=== PATIENT | male | born 1985 | race Caucasian/White ===

== ENCOUNTER 2024-02-03 13:53 | Inpatient (IN) | payer OTHER ==
--- NOTE | 2024-02-03 15:12 | ED ---
Upper Extremity HPI - General Chief Complaint: Extremity Injury, Upper Stated Complaint: L hand finger issue Time Seen by Provider: 02/03/24 15:11 Source: patient, RN notes reviewed Mode of arrival: ambulatory Limitations: no limitations - History of Present Illness Initial Comments: 38-year-old male presented to ER with a chief complaint of left second digit pain. Patient reports it has been painful and red for the past 2 months. Patient recently underwent surgical intervention and drainage of infection at [facility]. He does state he was started on oral antibiotics at discharge. He does not remember which antibiotics. He states for the past month finger has continued to be swollen, red and painful. He denies any new traumas or injuries. Patient recently checking into [facility] for heroin rehab. Last use last night. He also reports an abscess on his right forearm. He denies any fevers, chills, night sweats, chest pain, shortness of breath, abdominal pain, urinary complaints or peripheral edema. - Related Data Home Medications Medication Instructions Recorded Confirmed No Known Home Medications 02/03/24 02/03/24 Allergies Allergy/AdvReac Type Severity Reaction Status Date / Time No Known Allergies Allergy Verified 02/03/24 17:04 Review of Systems ROS Statement: Those systems with pertinent positive or pertinent negative responses have been documented in the HPI. ROS Other: All systems not noted in ROS Statement are negative. Past Medical History Past Medical History: No Reported History History of Any Multi-Drug Resistant Organisms: None Reported Past Surgical History: No Surgical Hx Reported Past Psychological History: ADD/ADHD, Anxiety Smoking Status: Current every day smoker Past Alcohol Use History: None Reported Past Drug Use History: Heroin, Marijuana General Exam Limitations: no limitations General appearance: alert, in no apparent distress, appears intoxicated Respiratory exam: Present: normal lung sounds bilaterally. Absent: respiratory distress, wheezes, rales, rhonchi, stridor Cardiovascular Exam: Present: regular rate, normal rhythm, normal heart sounds. Absent: systolic murmur, diastolic murmur, rubs, gallop, clicks Extremities exam: Present: tenderness (Fluctuant area noted on right forearm measuring approximately 2 x 2. No surrounding erythema or purulent drainage.), other (Left index finger with erythema and edema to distal end. Patient has limited range of motion at DIP due to swelling. There is a surgical incision wound present palmar side. No purulent drainage. Brisk cap refill.) Skin exam: Present: warm, dry, intact, normal color. Absent: rash Course Vital Signs 02/03/24 14:27 Temperature 98.2 F Pulse Rate 72 Respiratory 16 Rate Blood Pressure 104/61 O2 Sat by Pulse 98 Oximetry - Reevaluation(s) Reevaluation #1: 02/03/24 17:16 Case discussed with Mana Hoffman [facility], who accepts medical admission. Medical Decision Making - Medical Decision Making Was pt. sent in by a medical professional or institution (, PA, ANTHROPOLOGY FACULTY MEMBER, urgent care, hospital, or long term...) When possible be specific @ -Patient sent by [facility] for evaluation of left index finger pain. Did you speak to anyone other than the patient for history (EMS, parent, family, police, friend...)? What history was obtained from this source @ -No Did you review nursing and triage notes (agree or disagree)? Why? @ -I reviewed and agree with nursing and triage notes Were old charts reviewed (outside hosp., previous admission, EMS record, old EKG, old radiological studies, urgent care reports/EKG's, long term records)? Report findings @ -No old charts were reviewed Differential Diagnosis (chest pain, altered mental status, abdominal pain women, abdominal pain men, vaginal bleeding, weakness, fever, dyspnea, syncope, headache, dizziness, GI bleed, back pain, seizure, CVA, palpatations, mental health, musculoskeletal)? @ -Differential Musculoskeletal: Muscular strain, contusion, ligament sprain, fracture, arthritis, septic arthritis, bursitis, cellulitis, muscle spasm, nerve compression, DVT, arterial occlusion, herpes zoster, electrolyte abnormality, tumor.... This is not meant to be in all inclusive list EKG interpreted by me (3pts min.). @ -None X-rays interpreted by me (1pt min.). @ -Left finger x-ray interpreted by me significant for fragmentation and demineralization of the second distal phalanx of left second digit. Subacute fracture possibly complicated by infection is not excluded. Exclude mallet finger flexion deformity. CT interpreted by me (1pt min.). @ -None done U/S interpreted by me (1pt. min.). @ -None done What testing was considered but not performed or refused? (CT, X-rays, U/S, labs)? Why? @ -None What meds were considered but not given or refused? Why? @ -None Did you discuss the management of the patient with other professionals (professionals i.e. , PA, ANTHROPOLOGY FACULTY MEMBER, lab, RT, psych nurse, social service liaison, clinical operations manager, teacher, chief quality officer, watch caser)? Give summary @ -Yes, case discussed with Mana Hoffman [facility], who accepts medical admission. Was smoking cessation discussed for >3mins.? @ -I discussed smoking cessation for greater than 3 minutes. The risk of smo lior were discussed with the patient including but not limited to risks of cancer, stroke, coronary artery disease and COPD. Also discussed with patient were multiple methods of quitting smoking. Lastly we discussed the financial cost of smoking. Was critical care preformed (if so, how long)? @ -No Were there social determinants of health that impacted care today? How? (Homelessness, low income, unemployed, alcoholism, drug addiction, transportation, low edu. Level, literacy, decrease access to med. care, intermediate, rehab)? @ -Yes, patient is currently entering [facility] for heroin rehab. Was there de-escalation of care discussed even if they declined (Discuss DNR or withdrawal of care, Hospice)? DNR status @ -No What co-morbidities impacted this encounter? (DM, HTN, Smoking, COPD, CAD, Cancer, CVA, ARF, Chemo, Hep., AIDS, mental health diagnosis, sleep apnea, morbid obesity)? @ -Smoker, heroin addiction Was patient admitted / discharged? Hospital course, mention meds given and rou te, prescriptions, significant lab abnormalities, going to OR and other pertinent info. @ -Admitted. 38-year-old male presented to the ER with a chief complaint of left index finger pain. Patient sent from [facility] for evaluation of left index finger pain. Patient is a poor historian and does appear to be under the influence during exam. He frequently falls asleep but is easily abusable and orientated to person, placed and time. He has no signs of acute respiratory distress. Patient reports last his heroin use was last night. Patient states he was seen at [facility] approximately 1 month ago and had an I&D performed on left index finger. He was sent home on oral antibiotics. History and physical exam completed. Vitals stable. Left second finger erythematous and edematous. There is a surgical wound on palmar aspect. No purulent drainage present. Left upper extremity neurovascular intact. Patient also has a approximately 2 x 2 fluctuant area concerning of abscess on right forearm. No surrounding erythema or drainage. She admits to IV drug administration at this site. Laboratory studies obtained significant for white blood cell count 6.4, BUN 23, creatinine 0.62. Left finger x-rays interpreted by me significant for fragmentation and demineralization of the second left distal phalanx. Due to concern of IV drug abuse and no reported injury osteomyelitis is in the differential. Admission considered for IV antibiotics and to rule out osteomyelitis. Case discussed with [facility], Mana Hoffman, who accepts medical admission. Patient will be started on IV vancomycin. ID and orthopedics on consult. Patient agreeable for admission. Case discussed with ED attending, Dr. Hendrix. Undiagnosed new problem with uncertain prognosis? @ -Yes Drug Therapy requiring intensive monitoring for toxicity (Heparin, Nitro, Insulin, Cardizem)? @ -No Were any procedures done? @ -No Diagnosis/symptom? @ -Finger infection rule out osteomyelitis Acute, or Chronic, or Acute on Chronic? @ -Acute Uncomplicated (without systemic symptoms) or Complicated (systemic symptoms)? @ -Uncomplicated Side effects of treatment? @ -No Exacerbation, Progression, or Severe Exacerbation? @ -No Poses a threat to life or bodily function? How? (Chest pain, USA, GA, pneumonia, PE, COPD, DKA, ARF, appy, cholecystitis, CVA, Diverticulitis, Homicidal, Suicid al, threat to staff... and all critical care pts) @ -Possibly, can lead to sepsis. - Lab Data Result diagrams: 02/03/24 15:27 02/03/24 15:27 Lab Results 02/03/24 02/03/24 02/03/24 Range/Units 15:27 15:27 15:27 WBC 6.4 (3.8-10.6) k/uL RBC 3.88 L (4.30-5.90) m/uL Hgb 12.3 L (13.0-17.5) gm/dL Hct 36.6 L (39.0-53.0) % MCV 94.3 (80.0-100.0) fL MCH 31.6 (25.0-35.0) pg MCHC 33.5 (31.0-37.0) g/dL RDW 13.5 (11.5-15.5) % Plt Count 331 (150-450) k/uL MPV 7.3 Neutrophils % 70 % Lymphocytes % 17 % Monocytes % 5 % Eosinophils % 5 % Basophils % 1 % Neutrophils # 4.4 (1.3-7.7) k/uL Lymphocytes # 1.0 (1.0-4.8) k/uL Monocytes # 0.3 (0-1.0) k/uL Eosinophils # 0.3 (0-0.7) k/uL Basophils # 0.1 (0-0.2) k/uL Sodium 138 (137-145) mmol/L Potassium 4.4 (3.5-5.1) mmol/L Chloride 108 H (98-107) mmol/L Carbon Dioxide 26 (22-30) mmol/L Anion Gap 4 mmol/L BUN 23 H (9-20) mg/dL Creatinine 0.62 L (0.66-1.25) mg/dL Est GFR (CKD-EPI)AfAm >90 (>60 ml/min/1.73 sqM) Est GFR (CKD-EPI)NonAf >90 (>60 ml/min/1.73 sqM) Glucose 108 H (74-99) mg/dL Plasma Lactic Acid Brett 1.1 (0.7-2.0) mmol/L Calcium 8.4 (8.4-10.2) mg/dL Total Bilirubin 0.2 (0.2-1.3) mg/dL AST 27 (17-59) U/L ALT 25 (4-49) U/L Alkaline Phosphatase 57 (38-126) U/L Total Protein 6.5 (6.3-8.2) g/dL Albumin 3.6 (3.5-5.0) g/dL - Radiology Data Radiology results: report reviewed, image reviewed Disposition Clinical Impression: Finger infection Disposition: ADMITTED IP TO THIS [facility] Condition: Good Referrals: None,Stated [Primary Care Provider] - 1-2 days Time of Disposition: 16:45
[2024-02-03 15:40] LABS: Basophils # (A) 0.1 k/uL (0-0.2); Basophils % (A) 1 %; Eosinophils # (A) 0.3 k/uL (0-0.7); Eosinophils % (A) 5 %; HCT 36.6 % (39.0-53.0); HGB 12.3 gm/dL (13.0-17.5); Lymphocytes % (A) 17 %; MCH 31.6 pg (25.0-35.0); MCHC 33.5 g/dL (31.0-37.0); MCV 94.3 fL (80.0-100.0); Mean Platelet Volume 7.3; Monocytes # (A) 0.3 k/uL (0-1.0); Monocytes % (A) 5 %; Neutrophils # (A) 4.4 k/uL (1.3-7.7); Neutrophils % (A) 70 %; Platelet Count 331 k/uL (150-450); RBC 3.88 m/uL (4.30-5.90); RDW 13.5 % (11.5-15.5); WBC 6.4 k/uL (3.8-10.6)
[2024-02-03 16:08] LABS: ALT 25 U/L (4-49); AST 27 U/L (17-59); African American GFR (CKD) >90 (>60 ml/min/1.73 sqM); Albumin 3.6 g/dL (3.5-5.0); Alkaline Phosphatase 57 U/L (38-126); Anion Gap 4 mmol/L; Blood Urea Nitrogen 23 mg/dL (9-20); Calcium 8.4 mg/dL (8.4-10.2); Carbon Dioxide 26 mmol/L (22-30); Chloride 108 mmol/L (98-107); Glucose 108 mg/dL (74-99); Non-African American GFR(CKD) >90 (>60 ml/min/1.73 sqM); Potassium 4.4 mmol/L (3.5-5.1); Sodium 138 mmol/L (137-145); Total Bilirubin 0.2 mg/dL (0.2-1.3); Total Protein 6.5 g/dL (6.3-8.2)
--- NOTE | 2024-02-03 16:09 | XR ---
EXAMINATION TYPE: XR finger LT DATE OF EXAM: 02/03/2024 Comparison: None Clinical History: 38-year-old male swelling and pain TECHNIQUE: 3 views coned-down left index finger. Findings: Very flexion deformity second DIP joint. There appears to be a metal BB along the palmar aspect of th e hand at the level of the second metacarpal neck. Clinically correlate. There is fragmented appearance to the mid to distal aspect of the second distal phalanx with bony dem ineralization. Some soft tissue swelling is suggested here. Otherwise, no other acute fracture, sublu xation, dislocation is seen. Impression: 1. Fragmentation and demineralization of the second distal phalanx. More careful correlation for inju ry is recommended. A subacute fracture possibly complicated by infection is not excluded. 2. Correlate clinically to exclude a mallet finger flexion deformity of the index finger.
[2024-02-03] MEDS ORDERED: VANCOMYCIN IV PER PHARMACY 1 EACH MISC MISCELLANE PRN (16:42)
[2024-02-03] MEDS ORDERED: NALOXONE 0.4 MG/ML 1 ML VIAL IV PRN (16:43)
[2024-02-03] MEDS ORDERED: IBUPROFEN 400 MG TAB PO PRN (16:43)
[2024-02-03] MEDS ORDERED: ACETAMINOPHEN TAB 325 MG TAB PO PRN (16:43)
[2024-02-03] MEDS: VANCOMYCIN 1,250 MG in SODIUM CHLORIDE 0.9% 250 ML IVPB STA (17:30)
[2024-02-03] MEDS: SODIUM CHLORIDE 0.9% 1,000 ML IV SCH (17:30)
[2024-02-03] MEDS: HYDROcodone/APAP 5-325MG 1 EACH TAB PO PRN (18:54)
[2024-02-04] MEDS: VANCOMYCIN 1,250 MG in SODIUM CHLORIDE 0.9% 250 ML IVPB SCH (02:37)
--- NOTE | 2024-02-04 07:19 | P.CONS ---
History of Present Illness - Reason for Consult Consult date: 02/03/24 Finger infection Requesting physician: Tiffani Willard - Chief Complaint Left second finger tip swelling and redness x days - History of Present Illness Patient is a 38-year-old male with a past medical history significant for ADHD and anxiety current everyday smoker apparently has been dealing with the left second finger infection over the last 2 months and has been admitted to [facility] with the patient did have a drainage of abscess from the left second finger and the patient subsequently has been treated with an oral antibiotic therapy however the patient not sure about the name of that antibiotic or the name of bacteria that may have been growing in the culture patient presented to hospital with persistent swelling redness and pain to the right second finger that has been getting worse over the last few days patient describing pain to be sharp moderate intensity without any radiation with associated swelling and redness currently does not have any open wound or any drainage patient on presentation to the hospital was afebrile and no fever have recorded subsequently patient was not tachycardic hypotensive or hypoxic he did have a white count of 6.4 creatinine 0.62 liver enzymes are normal patient did have finger x-ray recommendation and demineralization of the second distal phalanx with a question of injury versus subacute fracture possibly complicated by infection not excluded patient was started on vancomycin infectious disease was consulted for further management of antibiotic therapy Review of Systems Positive point and negatives has been mentioned in the HPI, complete review of systems was performed and all other systems are negative Past Medical History Past Medical History: No Reported History History of Any Multi-Drug Resistant Organisms: None Reported Past Surgical History: No Surgical Hx Reported Past Psychological History: ADD/ADHD, Anxiety Smoking Status: Current every day smoker Past Alcohol Use History: None Reported Past Drug Use History: Heroin, Marijuana Medications and Allergies Home Medications Medication Instructions Recorded Confirmed Type Acetaminophen Tab [Tylenol] 650 mg PO Q6HR PRN tab 02/05/24 Rx Ibuprofen [Motrin] 400 mg PO Q6HR PRN tab 02/05/24 Rx Sulfamethox-Tmp 800-160Mg [Bactrim 1 tab PO Q12HR #28 tab 02/05/24 Rx DS 800-160 mg] cloNIDine HCL [Catapres] 0.1 mg PO BID #30 tab 02/05/24 Rx Allergies Allergy/AdvReac Type Severity Reaction Status Date / Time No Known Allergies Allergy Verified 02/03/24 17:04 Physical Exam Vitals: Vital Signs Temp Pulse Resp BP Pulse Ox 02/03/24 14:27 98.2 F 72 16 104/61 98 Intake and Output 02/03/24 02/03/24 02/03/24 06:59 14:59 22:59 Other: Weight 68.039 kg GENERAL DESCRIPTION: Middle-aged male lying in bed, no distress. No tachypnea or accessory muscle of respiration use. HEENT: Shows Pallor , no scleral icterus. Oral mucous membrane is dry. No pharyngeal erythema or thrush NECK: Trachea central, no thyromegaly. LUNGS: Unlabored breathing. Clear to auscultation anteriorly. No wheeze or crackle. HEART: S1, S2, regular rate and rhythm. No loud murmur ABDOMEN: Soft, no tenderness , guarding or rigidity, no organomegaly EXTREMITIES: Left second fingertip did have swelling slight redness no drainage SKIN: No rash, no masses palpable. NEUROLOGICAL: The patient is awake, alert, oriented x3, mood and affect normal. Results CBC & Chem 7: 02/04/24 10:01 02/05/24 07:02 Labs: Abnormal Lab Results - Last 24 Hours (Table) 02/03/24 02/03/24 Range/Units 15:27 15:27 RBC 3.88 L (4.30-5.90) m/uL Hgb 12.3 L (13.0-17.5) gm/dL Hct 36.6 L (39.0-53.0) % Chloride 108 H (98-107) mmol/L BUN 23 H (9-20) mg/dL Creatinine 0.62 L (0.66-1.25) mg/dL Glucose 108 H (74-99) mg/dL Assessment and Plan (1) Finger infection Current Visit: Yes Status: Acute Code(s): L08.9 - LOCAL INFECTION OF THE SKIN AND SUBCUTANEOUS TISSUE, UNSP SNOMED Code(s): 115540562 Plan: 1patient with a complicated history for the right second fingertip infection in this patient has been dealing with for almost 2 months and did have a previous I&D at [facility] failing oral antibiotic therapy with abnormal x-ray with a question of abscess versus osteomyelitis 2-we will try to obtain culture data from the [facility] 3-check inflammatory markers blood culture obtained which are currently pending 4-vancomycin pharmacy to dose target trough of 15 while watching kidney function and Vanco trough closely We will follow on clinical condition and cultures to further adjust medication if needed Thank you for this consultation we will follow the patient along with you Dictation was produced using [employer] software. please excuse any grammatical, word or spelling errors. Time with Patient: Greater than 30
--- NOTE | 2024-02-04 08:54 | P.CNOR ---
History of Present Illness - HPI Consult date: 02/04/24 Requesting physician: Tiffani Willard Consult reason: other (Finger infection rule out osteomyelitis) History of present illness: Patient is a 38-year-old male who presented to the hospital yesterday with chief complaint of left second digit pain. Patient has a past medical history signif icant for ADHD, anxiety, IVDA. Orthopedics was consulted due to left finger infection to rule out osteomyelitis. Patient was seen at bedside this morning on 5 N. patient states that he has been having ongoing swelling and redness to the end of the left second index finger for the past 2 months. Patient states a couple months ago he did have incision and drainage of the left index finger at [facility] and was placed on oral antibiotics for few weeks. Patient states this did not solve the issue and he began to have redness and pain over the past month. Patient does not recall injuring his index finger at all over the past few months. Patient denies any alleviating symptoms. Patient denies any radiation of pain. Patient says he has full function of his wrist. Patient denies any pain in the palmar space. Patient says he does have issues gripping things because of the limited mobility in the end of his left index finger. Patient denies any fever/chills. Patient does have a history of heroin use and per the ER note his last use was a couple days ago. Patient states he is did check into [place] prior to coming to the hospital. He denies any other orthopedic complaints at this time. Past Medical History Past Medical History: No Reported History History of Any Multi-Drug Resistant Organisms: None Reported Past Surgical History: No Surgical Hx Reported Past Anesthesia/Blood Transfusion Reactions: No Reported Reaction Past Psychological History: ADD/ADHD, Anxiety Smoking Status: Current every day smoker Past Alcohol Use History: None Reported Past Drug Use History: Heroin, Marijuana Medications and Allergies Home Medications Medication Instructions Recorded Confirmed Type No Known Home Medications 02/03/24 02/03/24 History Allergies Allergy/AdvReac Type Severity Reaction Status Date / Time No Known Allergies Allergy Verified 02/03/24 17:04 Physical Examination Inspection: Left second digit mallet finger. Erythema extending from the DIPJ distally to the tip of the left second index finger. Puncture wound present on the palmar aspect of the second index finger distal phalanx. Negative for any abscess or drainage. Sensation: Equal, symmetric, by intact throughout the upper and lower extremities Palpation: Moderate tenderness palpation from the left second index finger DIPJ extending distally to the tip of the finger. Nontender to palpation throughout rest of exam. Range of motion: Limited range of motion in the left index finger DIPJ secondary to injury/mallet finger. Limited range of motion in the PIPJ and MCPJ in the left second index finger. Full range of motion throughout rest of digits and hand and wrist bilaterally. Motor: Sludge Filtration Operator strength 5/5 in right hand. Sludge Filtration Operator strength 4/5 in left hand. 5/5 in all other major motor groups in bilateral upper extremities. Neurovascular: Radial pulse intact, 2+ bilaterally. Cap refill under 3 seconds in digits of upper extremities. Special test: Negative Gabbi bilaterally. Results - Labs Labs: Abnormal Lab Results - Last 24 Hours (Table) 02/03/24 02/03/24 Range/Units 15:27 15:27 RBC 3.88 L (4.30-5.90) m/uL Hgb 12.3 L (13.0-17.5) gm/dL Hct 36.6 L (39.0-53.0) % Chloride 108 H (98-107) mmol/L BUN 23 H (9-20) mg/dL Creatinine 0.62 L (0.66-1.25) mg/dL Glucose 108 H (74-99) mg/dL H & H 02/03/24 Range/Units 15:27 Hgb 12.3 L (13.0-17.5) gm/dL Hct 36.6 L (39.0-53.0) % Result Diagrams: 02/03/24 15:27 02/03/24 15:27 - Diagnostic results Wrist/Hand x-ray: report reviewed, image reviewed (X-ray of the left index fin josiah does show fracture along the distal phalanx. Positive for mallet finger. Negative for any dislocation.) Assessment and Plan Assessment: 1. Left second digit distal phalanx fracture; mallet finger; osteomyelitis Plan: 1. Left second digit distal phalanx fracture; mallet finger; osteomyelitis- X- ray of the left index finger does show fracture along the distal phalanx. Positive for mallet finger. Negative for any dislocation. I did discuss the findings of the exam and imaging with my attending, Dr. Duron. At this time we are recommending orthopedic surgical intervention in the form of left index finger incision and drainage and irrigation debridement vs revision amputation left second digit distal phalanx. Patient to be n.p.o. at this time. Surgery has been scheduled for this afternoon. We will continue to follow patient during stay in hospital. 2. Appreciate medical management and ID management 3. Pain management -Tylenol; ibuprofen; [place] 4. GI prophylaxis recs 5. DVT prophylaxis recs 6. PT/OT -patient may perform gentle range of motion exercises of the left hand 7. Encourage incentive spirometer use 8. Appreciate consult Time with Patient: Less than 30
[2024-02-04 11:02] LABS: Basophils % (A) 1 %; Eosinophils # (A) 0.1 k/uL (0-0.7); Eosinophils % (A) 2 %; HCT 38.9 % (39.0-53.0); HGB 12.4 gm/dL (13.0-17.5); Lymphocytes # (A) 0.8 k/uL (1.0-4.8); Lymphocytes % (A) 14 %; MCH 30.4 pg (25.0-35.0); MCHC 31.8 g/dL (31.0-37.0); MCV 95.7 fL (80.0-100.0); Mean Platelet Volume 7.5; Monocytes # (A) 0.3 k/uL (0-1.0); Monocytes % (A) 5 %; Neutrophils # (A) 4.6 k/uL (1.3-7.7); Neutrophils % (A) 77 %; Platelet Count 343 k/uL (150-450); RBC 4.06 m/uL (4.30-5.90)
[2024-02-04] MEDS: NICOTINE 14MG/24HR PATCH TRANSDERM SCH (11:34)
[2024-02-04] MEDS: PANTOPRAZOLE 40 MG TABLET PO SCH (11:34)
--- NOTE | 2024-02-04 12:01 | HP ---
HISTORY AND PHYSICAL CHIEF COMPLAINT: Left hand 2nd digit pain and swelling. HISTORY OF PRESENT ILLNESS: This is a 38-year-old gentleman with a past medical history of multiple medical problems, including heroin addiction, was complaining of left finger cellulitis and infection. The patient apparently had incision and drainage of abscess in [facility]. The patient is being evaluated by Infectious Disease and Orthopedic Surgery and osteomyelitis is suspected. There is no history of any fever, rigors, or chills. PAST MEDICAL HISTORY: Reviewed include ADD, ADHD, anxiety, substance abuse. HOME MEDICATIONS: None. ALLERGIES: None. FAMILY HISTORY: No history of heart disease or strokes in the family. SOCIAL HISTORY: As above. REVIEW OF SYSTEMS: A 14-point review is negative except as mentioned earlier. PHYSICAL EXAMINATION: VITAL SIGNS: Pulse is 50, blood pressure 119/60, respirations 16. HEENT: Conjunctivae normal. CARDIOVASCULAR: S1, S2. RESPIRATIONS: Breath sounds diminished at the bases. ABDOMEN: Soft, nontender. LEGS: No edema. NERVOUS SYSTEM: No focal deficits. EXTREMITIES: Examination of the left finger 2nd digit tenderness and erythema present. LABORATORY DATA: Reviewed. ASSESSMENT: 1. Left second finger digit abscess with failure of outpatient treatment, rule out osteomyelitis. 2. History of incision and drainage. 3. History of heroin abuse. 4. Polysubstance abuse. 5. History of anxiety, attention deficit hyperactivity disorder. 6. History of nicotine dependence. RECOMMENDATIONS AND DISCUSSION: This is a 38-year-old gentleman, who presented with multiple complex medical issues, we will monitor the patient closely. Broad-spectrum IV antibiotics. Obtain cultures report from [facility]. Closely follow with Orthopedic Surgery and Infectious Disease. Prognosis guarded. Further recommendations to follow. I would also recommend pain management as well as withdrawal management also. Prognosis guarded. MMODL / IJN: [id number] /
[2024-02-04] MEDS: cloNIDine HCL 0.1 MG TAB PO SCH (14:11)
[2024-02-04 15:39] LABS: ALT 25 U/L (10-49); AST 24 U/L (14-35); Albumin 3.8 g/dL (3.8-4.9); Albumin/Globulin Ratio 1.31 Ratio (1.60-3.17); Alkaline Phosphatase 54 U/L (41-126); BUN/Creat Ratio 23.83 Ratio (12.00-20.00); Blood Urea Nitrogen 14.3 mg/dL (9.0-27.0); C Reactive Protein <0.30 mg/dL (0.00-0.80); Calcium 9.2 mg/dL (8.7-10.3); Carbon Dioxide 21.3 mmol/L (21.6-31.8); Chloride 102 mmol/L (96-109); Globulin 2.9 g/dL (1.6-3.3); Glucose 116 mg/dL (70-110); Potassium 4.2 mmol/L (3.5-5.5); Sodium 135 mmol/L (135-145); Total Bilirubin 0.4 mg/dL (0.3-1.2); Total Protein 6.7 g/dL (6.2-8.2)
[2024-02-04 15:44] VITALS: BMI 20.3
--- NOTE | 2024-02-04 15:49 | P.PN ---
Subjective Progress Note Date: 02/04/24 Principal diagnosis: Reason for follow-up is left second finger infection Patient is a 38-year-old male with a past medical history significant for ADHD and anxiety current everyday smoker apparently has been dealing with the left second finger infection over the last 2 months with the previous I&D at [facility] in treated with oral biotics now presented hospital with worsening swelling did have abnormality on the x-rays concerning for cellulitis On today's evaluation that is 02/04/2024,the patient remains to be afebrile, patient is on room air not requiring supplemental oxygen and denies any shortness of breath no chest pain or cough.Patient denies having any nausea or vomiting, no abdominal pain and no diarrhea has been reported, denies any worsening pain to the right second finger or any drainage. Patient white count is 6.0 creatinine 0.6 Objective - Vital Signs Vital signs: Vital Signs Temp 98.0 F 02/04/24 12:34 Pulse 50 L 02/04/24 12:34 Resp 18 02/04/24 12:34 BP 114/66 02/04/24 12:34 Pulse Ox 99 02/04/24 12:34 FiO2 Intake & Output 02/03/24 02/04/24 02/04/24 18:59 06:59 18:59 Intake Total 590 Output Total 2 Balance 588 Weight 68.039 kg 68.039 kg Intake: Oral 590 Output: Urine 2 Other: Voiding Method Toilet Toilet - Exam GENERAL DESCRIPTION: Middle-age male lying in bed in no distress RESPIRATORY SYSTEM: Unlabored breathing , decreased breath sounds at bases HEART: S1 S2 regular rate and rhythm , ABDOMEN: Soft , no tenderness EXTREMITIES: Left second finger did have some swelling redness but no drainage - Labs CBC & Chem 7: 02/04/24 10:01 02/04/24 10:01 Labs: Abnormal Lab Results - Last 24 Hours (Table) 02/03/24 02/04/24 02/04/24 Range/Units 15:27 10:01 10:01 RBC 4.06 L (4.30-5.90) m/uL Hgb 12.4 L (13.0-17.5) gm/dL Hct 38.9 L (39.0-53.0) % Lymphocytes # 0.8 L (1.0-4.8) k/uL Chloride 108 H (98-107) mmol/L Carbon Dioxide 21.3 L (21.6-31.8) mmol/L BUN 23 H (9-20) mg/dL Creatinine 0.62 L (0.66-1.25) mg/dL BUN/Creatinine Ratio 23.83 H (12.00-20.00) Ratio Glucose 108 H 116 H (74-99) mg/dL Albumin/Globulin Ratio 1.31 L (1.60-3.17) Ratio Assessment and Plan (1) Finger infection Current Visit: Yes Status: Acute Code(s): L08.9 - LOCAL INFECTION OF THE SKIN AND SUBCUTANEOUS TISSUE, UNSP SNOMED Code(s): 628771301 Plan: 1patient with a complicated history for the right second fingertip infection in this patient has been dealing with for almost 2 months and did have a previous I&D at [facility] failing oral antibiotic therapy with abnormal x-ray with a question of abscess versus osteomyelitis 2-we are currently waiting for culture data from the [facility] 3-patient evaluated by orthopedic surgery commending no surgical intervention at this point 4-patient to continue with vancomycin pharmacy to dose target trough of 15 while waiting for the culture data and clinical response Dictation was produced using [employer] dictation software. please excuse any grammatical, word or spelling errors. Time with Patient: Less than 30
[2024-02-04] MEDS: HYDROmorphone 0.5 MG/0.5 ML SYRINGE IVP PRN (17:57)
[2024-02-04 18:19] LABS: Erythrocyte Sedimentation Rate 32 mm/Hr (0-15)
[2024-02-04] MEDS: HEPARIN SODIUM,PORCINE 5,000 UNIT/ML 1 ML VIAL SQ SCH (21:14)
[2024-02-04 23:09] LABS: Amphetamine Screen,Urine Not Detected (NotDetected); Barbiturate Screen,Urine Not Detected (NotDetected); Benzodiazepines Screen,Urine Detected (NotDetected); Cocaine Screen,Urine Detected (NotDetected); Methadone Screen, Urine Not Detected (NotDetected); Opiate Screen,Urine Detected (NotDetected); Oxycodone Screen, Urine Not Detected (NotDetected); Phencyclidine Screen,Urine Not Detected (NotDetected); Tricyclic Antidepressant,Urine Not Detected (NotDetected); Urn Cannabinoid Scrn Detected (NotDetected)
[2024-02-05] MEDS: VANCOMYCIN TROUGH DUE 1 EACH MISC MISCELLANE ONE (01:26)
[2024-02-05 07:44] LABS: African American GFR (CKD) >90 (>60 ml/min/1.73 sqM); Non-African American GFR(CKD) >90 (>60 ml/min/1.73 sqM)
[2024-02-05] MEDS: VANCOMYCIN 1,500 MG in SODIUM CHLORIDE 0.9% 500 ML 500 ML IVPB SCH (08:27)
[2024-02-05] MEDS: ONDANSETRON 4 MG/2 ML VIAL IVP PRN (08:50)
[2024-02-05 09:41] VITALS: RESP 17
[2024-02-05] MEDS ORDERED: LORazepam 2 MG/ML INJ IV PRN (11:34)
[2024-02-05 13:21] VITALS: BP 135/85; PULSE 41; TEMP 97.9
[2024-02-05] MEDS: LORazepam 1 MG/0.5 ML VIAL IV PRN (15:00)
--- NOTE | 2024-02-05 15:03 | P.DS ---
Providers Date of admission: 02/03/24 16:32 Expected date of discharge: 02/05/24 Attending physician: William Garza Consults: 02/03/24 16:43 Consult Physician Urgent Consulting Provider: Flo Duron Consult Reason/Comments: Finger infection rule out osteomyelitis Do you want consulting provider notified?: Yes Consult Physician Urgent Consulting Provider: Fantasma Méndez Consult Reason/Comments: finger infection r/o osteomyelitis Do you want consulting provider notified?: Yes Primary care physician: Stated None Hospital Course: Final diagnosis Left index finger cellulitis with failure of outpatient treatment, ruled out osteomyelitis. Culture showing MRSA from [place] History of recent incision and drainage at [place] [facility] of the left index finger History of heroin abuse Polysubstance abuse History of anxiety, ADHD History of continued ongoing nicotine dependence GI prophylaxis DVT prophylaxis Full code Discharge disposition Patient is being discharged in a stable condition with guarded prognosis to [place] for continued inpatient rehab. Patient will follow-up with his primary care provider in [place] in the outpatient setting upon discharge. Patient is to continue with oral antibiotics in the form of Bactrim twice daily for 2 weeks. Follow-up orthopedics outpatient as needed. Total time taken is greater than 35 minutes. Hospital course This is a 38-year-old male who was recently admitted with increasing redness and pain of the left index finger and concerns for worsening cellulitis. Patient was recently at [facility] [place] for drug addiction and heroin use inpatient rehab and was recently at [facility] and obtain cultures for left finger infection. Patient completed antibiotics although had worsening symptoms and came here for further evaluation. Patient evaluated by orthopedics with no plans for surgical intervention recommending antibiotic therapy. Infectious disease following as well and maintained on IV antibiotics. Cultures received from [place] [facility] with some sensitivities with MRSA and will be going on oral antibiotics per ID recommendations. Patient has been instructed to follow-up with primary care provider as well as orthopedics outpatient as needed. Patient has been cleared by consultations for discharge back to [place]. Please refer to other consultation notes for further HPI. Currently no reports of chest pain, shortness of breath, or palpitations. Patient is afebrile. No reports of nausea or vomiting and patient is tolerating diet. Patient will be going to [place] today. High risk for readmissions given patient's noncompliance and continued drug use. Physical exam: Gen: This is a 38-year-old male who is awake, alert and oriented x 3, thin built, anxious HEENT: Head is atraumatic, normocephalic. Pupils equal, round. Sclerae is anicteric. NECK: Supple. No JVD. No lymphadenopathy. No thyromegaly. LUNGS: Clear to auscultation. No wheezes or rhonchi. No intercostal retractions. HEART: Regular rate and rhythm. No murmur. ABDOMEN: Soft. Bowel sounds are present. No masses. No tenderness. EXTREMITIES: No pedal edema. No calf tenderness. Left index finger with minimal redness and some mild swelling noted NEUROLOGICAL: Patient is awake, alert and oriented x3. Cranial nerves 2 through 12 are grossly intact. Please refer to medication reconciliation sheet for a list of medications. The impression and plan of care has been dictated by Christina De Jesus, Nurse Practitioner as directed. Dr. Greg MD I have performed a history and examination and MDM of this patient, discussed the same with the dictator, and agree with the dictator's assessment and plan as written ,documented as a scribe. Based on total visit time, I have performed more than 50% of the visit. Patient Condition at Discharge: Fair Plan - Discharge Summary Discharge Rx Participant: Yes New Discharge Prescriptions: New Sulfamethox-Tmp 800-160Mg [Bactrim DS 800-160 mg] 1 tab PO Q12HR #28 tab Acetaminophen Tab [Tylenol] 650 mg PO Q6HR PRN tab PRN Reason: Mild Pain Or Fever > 100.5 cloNIDine HCL [Catapres] 0.1 mg PO BID #30 tab Ibuprofen [Motrin] 400 mg PO Q6HR PRN tab PRN Reason: Mild Pain Or Fever > 100.5 Discharge Medication List Acetaminophen Tab [Tylenol] 650 mg PO Q6HR PRN tab 02/05/24 [Rx] Ibuprofen [Motrin] 400 mg PO Q6HR PRN tab 02/05/24 [Rx] Sulfamethox-Tmp 800-160Mg [Bactrim DS 800-160 mg] 1 tab PO Q12HR #28 tab 02/05/24 [Rx] cloNIDine HCL [Catapres] 0.1 mg PO BID #30 tab 02/05/24 [Rx] Follow up Appointment(s)/Referral(s): Flo Duron DO [Doctor of Osteopathic Medicine] - 1 Week None,Stated [Primary Care Provider] - 1-2 days Activity/Diet/Wound Care/Special Instructions: Patient is returning to [place] Follow-up with orthopedics in 1 to 2 weeks Continue on antibiotics as prescribed per ID Follow-up with primary care provider on discharge Discharge Disposition: OTHER INSTITUTION NOT DEFINED
--- NOTE | 2024-02-05 16:08 | P.PN ---
Subjective Progress Note Date: 02/05/24 Principal diagnosis: Reason for follow-up is left second finger infection Patient is a 38-year-old male with a past medical history significant for ADHD and anxiety current everyday smoker apparently has been dealing with the left second finger infection over the last 2 months with the previous I&D at [facility] in treated with oral biotics now presented hospital with worsening swelling did have abnormality on the x-rays concerning for cellulitis On today's evaluation that is 02/05/2024, the patient continues to be afebrile, the patient is on room air and breathing comfortably, the Pt denies having any chest pain or cough, the patient denies having any abdominal pain no vomiting or any diarrhea, patient still complaining of pain to the left second finger though swelling has decreased there is no drainage patient apparently has been going through withdrawal and has been insisting on getting discharged back to the [place]. Patient did have a creatinine 0.60 blood culture this admission has been negative fever [facility] MRSA that was sensitive to Bactrim and doxycycline Objective - Vital Signs Vital signs: Vital Signs Temp 97.6 F 02/05/24 07:25 Pulse 60 02/05/24 07:25 Resp 17 02/05/24 07:25 BP 114/82 02/05/24 07:25 Pulse Ox 100 02/05/24 07:25 FiO2 Intake & Output 02/04/24 02/05/24 02/05/24 18:59 06:59 18:59 Intake Total 850 1440 Output Total 1 Balance 850 1439 Weight 68.039 kg Intake: Intake, IV Titration 850 850 Amount Sodium Chloride 0.9% 1, 600 600 000 ml @ 75 mls/hr IV . [id number] YAYA Rx#:[id number] Vancomycin 1,250 mg In 250 250 Sodium Chloride 0.9% 250 ml @ 125 mls/hr IVPB Q8H YAYA Rx#:[id number] Oral 590 Output: Emesis 1 Other: Voiding Method Toilet Toilet Toilet # Voids 1 - Exam GENERAL DESCRIPTION: Middle-age male lying in bed in no distress RESPIRATORY SYSTEM: Unlabored breathing , decreased breath sounds at bases HEART: S1 S2 regular rate and rhythm , ABDOMEN: Soft , no tenderness EXTREMITIES: Left second finger did have some swelling redness has slightly decreased no drainage - Labs CBC & Chem 7: 02/04/24 10:01 02/05/24 07:02 Labs: Abnormal Lab Results - Last 24 Hours (Table) 02/04/24 02/04/24 02/04/24 Range/Units 10:01 10:01 22:45 ESR 32 H (0-15) mm/Hr Carbon Dioxide 21.3 L (21.6-31.8) mmol/L Creatinine (0.66-1.25) mg/dL BUN/Creatinine Ratio 23.83 H (12.00-20.00) Ratio Glucose 116 H (70-110) mg/dL Albumin/Globulin Ratio 1.31 L (1.60-3.17) Ratio Urine Opiates Screen Detected H (NotDetected) U Benzodiazepines Scrn Detected H (NotDetected) Urine Cocaine Screen Detected H (NotDetected) U Marijuana (THC) Screen Detected H (NotDetected) 02/05/24 Range/Units 07:02 ESR (0-15) mm/Hr Carbon Dioxide (21.6-31.8) mmol/L Creatinine 0.60 L (0.66-1.25) mg/dL BUN/Creatinine Ratio (12.00-20.00) Ratio Glucose (70-110) mg/dL Albumin/Globulin Ratio (1.60-3.17) Ratio Urine Opiates Screen (NotDetected) U Benzodiazepines Scrn (NotDetected) Urine Cocaine Screen (NotDetected) U Marijuana (THC) Screen (NotDetected) Microbiology - Last 24 Hours (Table) 02/03/24 15:10 Blood Culture - Preliminary Blood 02/03/24 15:30 Blood Culture - Preliminary Blood Assessment and Plan (1) Finger infection Current Visit: Yes Status: Acute Code(s): L08.9 - LOCAL INFECTION OF THE SKIN AND SUBCUTANEOUS TISSUE, UNSP SNOMED Code(s): 140870519 Plan: 1patient with a complicated history for the right second fingertip infection in this patient has been dealing with for almost 2 months and did have a previous I&D at [facility] failing oral antibiotic therapy with abnormal x-ray with a question of abscess versus osteomyelitis 2-culture data from the [facility] finally received and reviewed growing MRSA that is sensitive to Bactrim and doxycycline 3-patient evaluated by orthopedic surgery commending no surgical intervention at this point 4-patient has been insisting on going back to the [place] to undergo his drug rehabilitation we will recommend a 2-week course of Bactrim DS however the patient did not have any improvement advised to follow-up with his orthopedics locally as may need surgical intervention and IV antibiotic therapy multiple question concern answered Dictation was produced using [employer] dictation software. please excuse any grammatical, word or spelling errors. Time with Patient: Less than 30
--- NOTE | 2024-02-05 23:52 | PN ---
PROGRESS NOTE DATE OF SERVICE: 02/05/2024 SUBJECTIVE: This is a 38-year-old gentleman who was admitted with left 2nd finger digit abscess and failure of outpatient treatment with possible osteomyelitis, is being closely monitored. Cultures are being pending at this time. Infectious Diseases is following the patient. OBJECTIVE: VITAL SIGNS: Pulse 41, blood pressure 135/85, respirations 17. CHEST: Few scattered rhonchi. ABDOMEN: Soft. NERVOUS SYSTEM: Nonfocal. LABORATORY DATA: Reviewed. ASSESSMENT: 1. Left second finger digital abscess with failure of outpatient treatment, rule out osteomyelitis. 2. History of incision and drainage. 3. History of heroin abuse. 4. Polysubstance abuse. 5. History of anxiety, ADHD. RECOMMENDATIONS AND DISCUSSION: I recommended to continue current management, continue antibiotics and symptomatic treatment. Otherwise, pain management. We will continue to monitor. Further recommendations to follow. ADELINE / NEALN: [id number] /
[2024-02-07] MEDS ORDERED: VANCOMYCIN TROUGH DUE 1 EACH MISC MISCELLANE ONE (08:00)
== END 2024-02-05 16:45 | disposition other institution (70) | DRG 383 ==
LOC: EC 13:53 → 5NMEDONC 16:32
PROVIDERS: ADMIT Hospitalist; ATTEND Hospitalist
DX: L03.012 Cellulitis of left finger (principal); M20.019 Mallet finger of unspecified finger(s); L02.413 Cutaneous abscess of right upper limb; F17.200 Nicotine dependence, unspecified, uncomplicated; B95.62 Methicillin resistant Staphylococcus aureus infection as the cause of diseases classified elsewhere; F11.20 Opioid dependence, uncomplicated; F19.20 Other psychoactive substance dependence, uncomplicated; F41.9 Anxiety disorder, unspecified; F90.9 Attention-deficit hyperactivity disorder, unspecified type; Z71.3 Dietary counseling and surveillance; Z28.310 Unvaccinated for COVID-19; Z79.899 Other long term (current) drug therapy; Z22.322 Carrier or suspected carrier of Methicillin resistant Staphylococcus aureus; Z91.199 Patient's noncompliance with other medical treatment and regimen due to unspecified reason
CPT/HCPCS: 36415; 80053; 80202; 80306; 82565; 83605; 85025; 85652; 86140; 87040; 96365; 99285; 99406